=== PATIENT | male | born 1965 | race Caucasian/White ===

== ENCOUNTER 2022-01-23 08:58 | Outpatient (CLI) | payer BC, SELFPAY ==
--- NOTE | 2022-01-23 09:15 | CRLHL7_ITS ---
For Patients: As a result of the Century Cures Act, medical imaging exams and procedure reports are released immediately into your electronic medical record. You may view this report before your referring provider. If you have questions, please contact your health care provider. HISTORY: Evaluate for rotator cuff tear TECHNIQUE: Axial, sagittal oblique and coronal oblique T1, proton density, proton density fat-sat and T2 weighted images were obtained of the left shoulder without contrast administration. COMPARISON: None FINDINGS: Rotator cuff: High-grade partial thickness articular surface tear of the supraspinatus at the insertion measuring approximately 7 mm in AP dimension (series 7, image 8, series 5, images 11 and 12) with a background of moderate supraspinatus tendinosis. Moderate subscapularis tendinosis with partial-thickness interstitial tearing. Mild infraspinatus tendinosis. Rotator cuff muscle mass is maintained. - AC joint and coracoacromial arch: AC joint is intact. No significant fluid in the subacromial/subdeltoid bursa. No os acromiale. - Biceps-labral complex: The long head of biceps tendon is intact. There is no subluxation or dislocation of the tendon from the bicipital groove. The labrum is intact. - Glenohumeral joint: No effusion. The articular surfaces are smooth without focal articular cartilage defect. No significant malalignment. Mild inferior capsular edema. - Bones and soft tissues: There is no acute fracture. No abnormality within the suprascapular or spinoglenoid notches nor within the quadrilateral space. IMPRESSION: 1. High-grade partial thickness articular surface tear of the supraspinatus at the insertion measuring 7 mm in AP dimension with a background of tendinosis. 2. Partial-thickness interstitial tearing of the subscapularis with a background of tendinosis. 3. Mild infraspinatus tendinosis. 4. Edema of the inferior glenohumeral joint capsule which is nonspecific but can be seen with adhesive capsulitis. Dictated by Lenny Mejia MD @ 01/23/2022 3:23:48 PM (Electronically Signed)
== END 2022-01-23 08:59 | disposition home or self-care (01) ==
PROVIDERS: PCP Internal Medicine; Visit Provider Internal Medicine
DX: M25.512 Pain in left shoulder (principal); M75.102 Unspecified rotator cuff tear or rupture of left shoulder, not specified as traumatic; M75.82 Other shoulder lesions, left shoulder; M75.02 Adhesive capsulitis of left shoulder
CPT/HCPCS: 73221

== ENCOUNTER 2022-02-26 14:48 | Outpatient (RCR) | payer BC, SELFPAY | END 2022-04-29 09:46 | disposition home or self-care (01) | PROVIDERS: PCP Internal Medicine; Visit Provider Orthopaedic Surgery Sports Medicine | DX: S46.012A Strain of muscle(s) and tendon(s) of the rotator cuff of left shoulder, initial encounter (principal); Z51.89 Encounter for other specified aftercare | CPT/HCPCS: 97110; 97161 ==

== ENCOUNTER 2022-10-03 16:10 | Outpatient (CLI) | payer BC, SELFPAY | END 2022-10-03 16:11 | disposition home or self-care (01) | LOC: NFLDREF 10-07 12:22 | PROVIDERS: PCP Internal Medicine; Referring Provider Internal Medicine; Visit Provider Internal Medicine | DX: Z12.5 Encounter for screening for malignant neoplasm of prostate (principal); Z13.6 Encounter for screening for cardiovascular disorders; Z13.1 Encounter for screening for diabetes mellitus | CPT/HCPCS: 80053; 80061; 84153 ==

== ENCOUNTER 2023-08-15 07:04 | Outpatient (CLI) | payer BC, SELFPAY ==
--- NOTE | 2023-08-15 08:17 | W.ANESCHARGE ---
Anesthesia Charges Start Date/Time Anesthesia Start Date: 08/15/23 Anesthesia Start Time: 07:55 Stop Date/Time Anesthesia Stop Date: 08/15/23 Anesthesia Stop Time: 08:14
[2023-08-15 08:20] LABS: Albumin* 4.6 g/dL (3.3-5.0); Chloride* 106 mmol/L (96-114)
[2023-08-15 08:21] LABS: Potassium* 4.9 mmol/L (3.6-5.1); Sodium* 140 mmol/L (135-149)
[2023-08-15 08:23] LABS: Alanine Aminotransferase* 38 U/L (4-50); Alkaline Phosphatase* 60 U/L (40-150); Anion Gap 7 mEq/L (7-15); Aspartate Amino Transferase* 43 U/L (12-35); Bilirubin Total* 1.5 mg/dL (0.1-1.5); Blood Urea Nitrogen* 15 mg/dL (7-30); Carbon Dioxide* 27 mmol/L (20-32); Cholesterol* 247 mg/dL (90-199); Creatinine* 0.9 mg/dL (0.5-1.5); Estimated Glomerular Filt Rate 98 ml/min; Glucose* 90 mg/dL (60-115); Total Protein* 7.7 g/dL (6.0-8.3); Triglycerides* 311 mg/dL (40-149)
[2023-08-15 08:24] LABS: HDL Cholesterol* 66 mg/dL (>=40); LDL Cholesterol Calculated 119 mg/dL (<100)
--- NOTE | 2023-08-15 11:11 | W.ANESCHARGE ---
Anesthesia Charges Start Date/Time Anesthesia Start Date: 08/15/23 Anesthesia Start Time: 07:55 Stop Date/Time Anesthesia Stop Date: 08/15/23 Anesthesia Stop Time: 08:14
== END 2023-08-15 07:05 | disposition home or self-care (01) ==
LOC: OP CLINIC 07:04
PROVIDERS: PCP Internal Medicine; Visit Provider Internal Medicine
DX: Z12.11 Encounter for screening for malignant neoplasm of colon (principal); Z12.5 Encounter for screening for malignant neoplasm of prostate; Z13.6 Encounter for screening for cardiovascular disorders; Z13.9 Encounter for screening, unspecified
CPT/HCPCS: 00812; 36415; 45378; 80053; 80061; G0103; J2704

== ENCOUNTER 2023-10-21 08:42 | Outpatient (CLI) | payer BC, SELFPAY ==
--- OUTSIDE RECORDS SUMMARY | 2023-11-08 21:46 | XMS_ITS | Referral Summary ---
Author Organization [place] Address [address] [place] [address] Care Team Providers Care Technical Training Coordinator Name Role Phone Je Batres MD Unavailable [phone] Je Batres MD Primary Care Provider [phone] Encounters Date Type Department Care Team Description 09/19/2023 [facility] Medical Advice [address] [address] Je Batres MD 09/16/2023 3:45 PM CDT Virtual Visit [address] [address] Je Batres MD Prostate cancer (H) (Primary Dx) 08/29/2023 Travel 08/29/2023 1:00 PM CDT Lab [address] [place] [id number] Prostate cancer (H) from Last 3 Months Allergies No known active allergies Medications Medication Sig Dispensed Refills Start Date End Date Status ciprofloxacin (CIPRO) 500 MG tabletIndications:E levated prostate specific antigen (PSA) Take one tablet twice daily starting day prior to procedure. 6 tablet 0 01/14/2014 Active Additional Information Patient not taking.Reported on 07/19/2022 ciprofloxacin (CIPRO) 500 MG tabletIndications:P rophylactic antibiotic Take 1 tablet (500 mg) by mouth 2 times daily Take one pill every 12 hours And begin taking the day before the biopsy 6 tablet 11/20/2021 Active Additional Information Patient not taking.Reported on 11/28/2021 ciprofloxacin (CIPRO) 500 MG tabletIndications:P rophylactic antibiotic Take 1 tab in the AM and 1 tab in the PM the day before your procedure, day of and day after. 6 tablet 01/17/2023 Active escitalopram (LEXAPRO) 10 MG tablet 07/05/2023 Active Active Problems Problem Noted Date Diagnosed Date Elevated prostate specific antigen (PSA) 014 Immunizations Name Administration Dates Next Due COVID-19 Bivalent 12+ (Pfizer) 02/08/2022 Influenza (IIV3) PF 03/12/2017, 4,03/09/2014,2012 Influenza Intranasal Vaccine 03/30/2012,05/23/20 08 Influenza Vaccine (Flucelvax Quadrivalent) 03/12/2018 Influenza Vaccine >6 months,quad, PF ,03/14/2022,03/14/2021,2020 Influenza Vaccine, 6+MO IM (QUADRIVALENT W/PRESERVATIVES) 03/15/2020,03/10/2019 Influenza, seasonal, injectable, PF 02/21/2009 TDAP (Adacel,Boostrix) 04/02/2018,05/23/2008 Zoster recombinant adjuvante d (SHINGRIX) 07/04/2022,02/02/2022 Social History Tobacco Use Types Packs/Day Years Used Date Smoking Tobacco: Former Smokeless Tobacco: Never Tobacco Cessation:Counseling Given: Not Answered Alcohol Use Standard Drinks/Week Comments Yes 0 (1 standard drink = 0.6 oz pur e alcohol) PHQ-2 Answer Date Recorded PHQ-2 Score 0 07/19/2022 Adolescent Education Answer Date Record ed Getting School Help Needed Not on file 02/21 Sex and Gender Information Value Date Recorded Sex Assigned at Not on file Gender Identity Not on file Sexual Orientation Not on file Last Filed Vital Signs Vital Sign Reading Time Taken Comments Blood Pressure 125/77 01/24/2023 4:19 PM CDT Pulse 59 01/24/2023 4:19 PM CDT Temperature - - Respiratory Rate - - Oxygen Saturation 95% 01/24/2023 4:19 PM CDT Inhaled Oxygen Concentration - - Weight 74.8 kg (165 lb) 09/16/2023 3:21 PM CDT Height 170.2 cm (5' 7) 09/16/2023 3:21 PM CDT Body Mass Index 25.84 09/16/2023 3:21 PM CDT Plan of Treatment Not on file Procedures Procedure Name Priority Date/Time Associated Diagnosis Comments PSA TUMOR MARKER Routine 08/29/2023 12:3 2 PM CDT Prostate cancer (H) from Last 3 Months Results * (ABNORMAL) PSA, tumor marker (08/29/2023 12:32 PM CDT) PSA Tumor Marker 13.42(H) 0.00 - 4.50 ng/mL 08/29/2023 1:28 PM CDT [facility] - [facility]ORE LAB Blood STRUCTURE OF LEFT UPPER LIMB / Unknown Venipuncture / Unknown 08/29/2023 12:32 PM CDT 08/29/2023 12:32 PM CDT Narrative [facility] - CORE LAB - 08/29/2023 1:28 PM CDT This result is obtained using the Tiffanie Elecsys total PSA method on the yenny e411 immunoassay analyzer. Results obtained with different assay methods or kits cannot be used interchangeably. Je Batres MD LAB - BLOOD ORDERA BLES [facility] - CORE LAB [facility] - [address] 1st [place] [address] from Last 3 Months Care Teams Technical Training Coordinator Relationship Specialty Start Date End Date Je Batres MD [address] [address] PCP - General Urology 08/06/23 Je Batres MD [address] [place] [address] Assigned Surgical Provider 10/21/21
--- OUTSIDE RECORDS SUMMARY | 2023-11-08 21:46 | XMS_ITS | Encounter Summary ---
Author Organization [place] Address [address] [place] [address] Care Team Providers Care High School Football Coach Name Role Phone Ivy Gatica RN Unavailable [phone] Je Batres MD Unavailable [phone] Je Batres MD Primary Care Provider + [phone] Encounter Details Date Type Department Care Team (Late st Contact Info) Description 07/19/2022 [facility] [place] [facility] [place] [id number] [facility] [address] [place] [address] Je Batres MD [address] [place], [place] [address] Social History Tobacco Use Types Packs/Day Years Used Date Smoking Tobacco: Former Smokeless Tobacco: Never Alcohol Use Standard Drinks/Week Comments Yes 0 (1 standard drink = 0.6 oz pur e alcohol) PHQ-2 Answer Date Recorded PHQ-2 Score 0 07/19/2022 Sex and Gender Information Value Date Recorded Sex Assigned at Not on file Gender Identity Not on file Sexual Orientation Not on file COVID-19 Exposure Response Date Recorded In the last 10 days, have yo u been in contact with someone who was confirmed or suspected to have Coronavirus/COVID-19? No / Unsure 07/19/2022 12:27 PM UTILITY BILL COLLECTOR documented as of this encounter Plan of Treatment Not on file documented as of this encounter Visit Diagnoses Not on filedocumented in this encounter Care Teams High School Football Coach Relationship Specialty Start Date End Date Je Batres MD [address] [address] PCP - General Urology 08/06/23 Ivy Gatica, RN Continuity Quality Control Representative Urology 01/04/14 12/17/22 Je Batres MD [address] [place] [address] Assigned Surgical Provider 10/21/21 documented as of this encounter
--- OUTSIDE RECORDS SUMMARY | 2023-11-08 21:46 | XMS_ITS | Encounter Summary ---
Author Organization [place] Address [address] [place] [address] Care Team Providers Care Sewer Builder Name Role Phone Ivy Gatica RN Unavailable [phone] Je Batres MD Unavailable Je Batres MD Primary Care Provider [phone] Encounter Details Date Type Department Care Team (Late st Contact Info) Description 11/23/2021 External Order Results [facility] [address] [place] [address] Outside, Provider Prostate cancer (H) Social History Tobacco Use Types Packs/Day Years Used Date Smoking Tobacco: Former Smokeless Tobacco: Never Alcohol Use Standard Drinks/Week Comments Yes 0 (1 standard drink = 0.6 oz pur e alcohol) PHQ-2 Answer Date Recorded PHQ-2 Score 0 11/23/2021 Sex and Gender Information Value Date Recorded Sex Assigned at Not on file Gender Identity Not on file Sexual Orientation Not on file COVID-19 Exposure Response Date Recorded In the last 10 days, have yo u been in contact with someone who was confirmed or suspected to have Coronavirus/COVID-19? No / Unsure 11/23/2021 12:02 PM CDT documented as of this encounter Plan of Treatment Not on file documented as of this encounter Procedures Procedure Name Priority Date/Time Associated Diagnosis Comments [employer] PROSTATE CANCER CANCER GENETIC COUNSELOR Routine 11/23/2021 Prostate cancer (H) documented in this encounter Results * Decipher Prostate Cancer Owner Professional Engineer (11/23/2021) See Scanned Report [employer] Fixed Tissue 11/23/2021 Je VALENCIA [email or web address] [address] [facility] [address] [place] [address], [facility] documented in this encounter Visit Diagnoses Diagnosis Prostate cancer (H) Malignant neoplasm of prostate documented in this encounter Care Teams Sewer Builder Relationship Specialty Start Date End Date Je Batres MD [address] [address] PCP - General Urology 08/06/23 Ivy Gatica, RN Continuity King Maker Urology 01/04/14 12/17/22 Je Batres MD [address] [place] [address] Assigned Surgical Provider 10/21/21 documented as of this encounter
--- OUTSIDE RECORDS SUMMARY | 2023-11-08 21:46 | XMS_ITS | Encounter Summary ---
Author Organization [place] Address [address] [place] [address] Care Team Providers Care Buying Intern Name Role Phone Ivy Gatica RN Unavailable [phone] Je Batres MD Unavailable [phone] Je Batres MD Primary Care Provider + [phone] Encounter Details Date Type Department Care Team (Late st Contact Info) Description 03/05/2022 [facility] [place] [facility] [place] [address] [facility] [address] [place] [address] Delmi Phipps Social History Tobacco Use Types Packs/Day Years Used Date Smoking Tobacco: Former Smokeless Tobacco: Never Alcohol Use Standard Drinks/Week Comments Yes 0 (1 standard drink = 0.6 oz pur e alcohol) PHQ-2 Answer Date Recorded PHQ-2 Score 0 11/23/2021 Sex and Gender Information Value Date Recorded Sex Assigned at Not on file Gender Identity Not on file Sexual Orientation Not on file documented as of this encounter Plan of Treatment Not on file documented as of this encounter Visit Diagnoses Not on filedocumented in this encounter Care Teams Buying Intern Relationship Specialty Start Date End Date Je Batres MD [address] [address] PCP - General Urology 08/06/23 Ivy Gatica RN Continuity Supervisor Printing And Stamping Urology 01/04/14 12/17/22 Je Batres MD [address] [place] [address] Assigned Surgical Provider 10/21/21 documented as of this encounter
--- OUTSIDE RECORDS SUMMARY | 2023-11-08 21:46 | XMS_ITS | Encounter Summary ---
Author Organization [place] Address [address] [place] [address] Care Team Providers Care Local Truck Driver Name Role Phone Je Batres MD Unavailable [phone] Je Batres MD Primary Care Provider [phone] Encounter Details Date Type Department Care Team (Late st Contact Info) Description 09/19/2023 [facility] [place] [address] [place] [address] Je Batres MD [address] [place], [place] [address] Social History Tobacco Use Types Packs/Day Years [...] on filedocumented in this encounter Care Teams Local Truck Driver Relationship Specialty Start Date End Date Je Batres MD [address] [address] PCP - General Urology 08/06/23 Je Batres MD [address] [place] [address] Assigned Surgical Provider 10/21/21 documented as of this encounter
--- OUTSIDE RECORDS SUMMARY | 2023-11-08 21:46 | XMS_ITS | Clinical Summary ---
Author Organization [place] Address [address] [place] [address] Care Team Providers Care Manager Meat Name Role Phone Je Batres MD Unavailable [phone] Je Batres MD Primary Care Provider [phone] Allergies No known active allergies Medications Medication [...] Date Elevated prostate specific antigen (PSA) 014 Encounters Date Type Department Care Team Description 09/19/2023 My[facility] Medical Advice [address] [place] [address] Je Batres MD 09/16/2023 3:45 PM CDT Virtual Visit [facility] [address] [facility] [address] [place] [address] Je Batres MD Prostate cancer (H) (Primary Dx) 08/29/2023 1:00 PM CDT Lab [facility] [address] [facility] [address] 1st [place] [address] Prostate cancer (H) 08/29/2023 Travel from Last 3 Months Immunizations Name Administration Dates Next Due COVID-19 Bivalent 12+ (Pfizer) 02/08/2022 Influenza (IIV3) PF 03/12/2017, 4,03/09/2014,2012 Influenza Intranasal Vaccine 03/30/2012,05/23/20 08 Influenza Vaccine (Flucelvax Quadrivalent) 03/12/2018 Influenza Vaccine >6 months,quad, PF ,03/14/2022,03/14/2021,2020 Influenza Vaccine, 6+MO IM (QUADRIVALENT W/PRESERVATIVES) 03/15/2020,03/10/2019 Influenza, seasonal, injectable, PF 02/21/2009 TDAP (Adacel,Boostrix) 04/02/2018,05/23/2008 Zoster recombinant adjuvante d (SHINGRIX) 07/04/2022,02/02/2022 Family History Medical History Relation Comments Other - See Comments Father Enlarged pr ostate Breast Cancer Other 1 cousin Myocardial Infarction Other 2 grandfathe r Cerebrovascular Disease Other 3 grandfat her Relation Status Comments Father Alive Mother Alive Other 1 Other 2 Other 3 Social History Tobacco Use Types Packs/Day Years [...] 09/16/2023 3:21 PM CDT Plan of Treatment Health Maintenance Due Date Last Done Comments ADVANCE CARE PLANNING 1963 ANNUAL REVIEW OF HM ORDERS 1963 CT COLONOGRAPHY 1963 FIT 1963 FLEX SIG 1963 GLUCOSE 1963 YEARLY PREVENTIVE VISIT 1963 sDNA (Cologuard) 1963 COLONOSCOPY 1973 COLORECTAL CANCER SCREENING 1973 HIV SCREENING 1978 HEPATITIS C SCREENING 1981 LIPID 2003 LUNG CANCER SCREENING 2013 PHQ-2 (once per calendar year) 2023 07/19/2022, 11/23/2021, 11/19/2021, Additional history exists RSV VACCINE ( & 60+) (1 - 1-dose 60+ series) 2023 DTAP/TDAP/TD IMMUNIZATION (3 - Td or Tdap) 04/02/2028 04/02/2018, 05/23/2008 ZOSTER IMMUNIZATION Completed 07/04/2022, COVID-19 Vaccine Completed 02/28/2023, 01/2022, 04/05/2021, Additional history exists INFLUENZA VACCINE Completed 02/28/2023, , 03/14/2021, Additional history exists HPV IMMUNIZATION Aged Out No longer e ligible based on patient's age to complete this topic IPV IMMUNIZATION Aged Out No longer e ligible based on patient's age to complete this topic MENINGITIS IMMUNIZATION Aged Out No l onger eligible based on patient's age to complete this topic Pneumococcal Vaccine: Pediatrics (0 to 5 Years) and At-Risk Patients (6 to 64 Years) Aged Out No longer eligible based on patient's age to complete this topic RSV MONOCLONAL ANTIBODY Aged Out No l onger eligible based on patient's age to complete this topic Procedures Procedure Name Priority Date/Time Associated Diagnosis Comments PSA TUMOR MARKER Routine 08/29/2023 12:3 2 PM CDT Prostate cancer (H) from Last 3 Months Results * (ABNORMAL) PSA, tumor marker (08/29/2023 12:32 PM CDT) PSA Tumor Marker 13.42(H) 0.00 - 4.50 ng/mL 08/29/2023 1:28 PM CDT [facility] Blood STRUCTURE OF LEFT UPPER LIMB / Unknown Venipuncture / Unknown 08/29/2023 12:32 PM CDT 08/29/2023 12:32 PM CDT Narrative [facility] - 08/29/2023 1:28 PM CDT This result is obtained using the Tiffanie Elecsys total PSA method on the yenny e411 immunoassay analyzer. Results obtained with different assay methods or kits cannot be used interchangeably. Je Batres MD LAB - BLOOD ORDERA BLES [facility] LAB [facility] - [address] 1st [place] [address] from Last 3 Months Care Teams Manager Meat Relationship Specialty Start Date End Date Je Batres MD [address] [facility] [address] [place] [address] PCP - General Urology 08/06/23 Je Batres MD [address] [place] [address] Assigned Surgical Provider 10/21/21
--- OUTSIDE RECORDS SUMMARY | 2023-11-08 21:46 | XMS_ITS | Encounter Summary ---
Author Organization [place] Address [address] [place] [address]. [place] [address] Care Team Providers Care Hemp Fiber Taker Off Name Role Phone Ivy Gatica RN Unavailable [phone] Je Batres MD Unavailable [phone] Je Batres MD Primary Care Provider [phone] Reason for Visit * Reason Onset Date Comments Results 01/07/2022 Genomic testing results requested Encounter Details Date Type Department Care Team ([facility] st Contact Info) Description 01/07/2022 [facility] [place] [address] [facility] [address] [place] [address] Je Batres MD [address] [place], [place] [address] Results (Genomic testing results requested) Social History Tobacco Use Types Packs/Day Years [...] on file documented as of this encounter Miscellaneous Notes * Telephone Encounter - Genoveva Persaud - 01/07/2022 11:04 AM CDT [facility] Call Center Phone Message May a detailed message be left on voicemail: yes Reason for Call: Requesting Results Name/type of test: Genomic Testing of Biopsy Results per patient Date of test: 11/23/21 Was test done at a location other than [facility] (Please fill in the location if not [facility])?: No Action Taken: Other: Urology Travel Screening: Not Applicable documented in this encounter Plan of Treatment Not on file documented as of this encounter Visit Diagnoses Not on filedocumented in this encounter Care Teams Hemp Fiber Taker Off Relationship Specialty Start Date End Date Je Batres MD [address] [address] PCP - General Urology 08/06/23 Ivy Gatica, RN Continuity Book Editor Urology 01/04/14 12/17/22 Je Batres MD [address] [place] [address] Assigned Surgical Provider 10/21/21 documented as of this encounter
--- OUTSIDE RECORDS SUMMARY | 2023-11-08 21:46 | XMS_ITS | Encounter Summary ---
Author Organization [place] Address [address] [place] [address]. [place] [address] Care Team Providers Care Embedded Systems Designer Name Role Phone Ivy Gatica RN Unavailable [phone] Je Batres MD Unavailable [phone] Je Batres MD Primary Care Provider [phone] Reason for Visit * Reason Onset Date Comments Appointment 09/20/2022 Prostate biopsy this summer Encounter Details Date Type Department Care Team (Late st Contact Info) Description 09/20/2022 Telephone [facility] [place] [address] [facility] [address] [place] [address] Je Batres MD [address] [place] [address] Appointment (Prostate biopsy this summer) Social History Tobacco Use Types Packs/Day Years [...] suspected to have Coronavirus/COVID-19? No / Unsure 09/09/2022 3:05 PM CDT documented as of this encounter Miscellaneous Notes * Telephone Encounter - Andre Snowden - 09/20/2022 2:21 PM CDT [facility] Call Center Phone Message May a detailed message be left on voicemail: yes Reason for Call: Appointment Intake Referring Provider Name: Dr. Batres Diagnosis and/or Symptoms: prostate biopsy Action Taken: Other: ua uro Travel Screening: Not Applicable documented in this encounter Plan of Treatment Not on file documented as of this encounter Visit Diagnoses Not on filedocumented in this encounter Care Teams Embedded Systems Designer Relationship Specialty Start Date End Date Je Batres MD [address] [place] [address] PCP - General Urology 08/06/23 Ivy Gatica, RN Continuity Health And Physical Education Professor Urology 01/04/14 12/17/22 Je Batres MD [address] [place] [address] Assigned Surgical Provider 10/21/21 documented as of this encounter
--- OUTSIDE RECORDS SUMMARY | 2023-11-08 21:46 | XMS_ITS | Encounter Summary ---
Author Organization [place] Address [address] [place] [address] Care Team Providers Care Spine Nurse Name Role Phone Ivy Gatica RN Unavailable [phone] Je Batres MD Unavailable [phone] Je Batres MD Primary Care Provider + [phone] Encounter Details Date Type Department Care Team (Late st Contact Info) Description 11/20/2021 [facility] [place] [address] [facility] [address] [place] [address] [facility] Social History Tobacco Use Types Packs/Day Years [...] on filedocumented in this encounter Care Teams Spine Nurse Relationship Specialty Start Date End Date Je Batres MD [address] [facility] [address] [place] [address] PCP - General Urology 08/06/23 Ivy Gatica, RN Continuity Campus Receptionist Urology 01/04/14 12/17/22 Je Batres MD [address] [place] [address] Assigned Surgical Provider 10/21/21 documented as of this encounter
--- OUTSIDE RECORDS SUMMARY | 2023-11-08 21:46 | XMS_ITS | Encounter Summary ---
Author Organization [facility] Address [address] [place] [address] Care Team Providers Care Teacher Selection Specialist Name Role Phone Je Batres MD Unavailable [phone] Je Batres MD Primary Care Provider [phone] Encounter Details Date Type Department Care Team (Late st Contact Info) Description 08/29/2023 1:00 PM CDT [address] [place] [address] Prostate cancer (H) Social History Tobacco Use [...] 12:3 2 PM CDT Prostate cancer (H) documented in this encounter Results * (ABNORMAL) PSA, tumor marker (08/29/2023 12:32 PM CDT) PSA Tumor Marker 13.42(H) 0.00 - 4.50 ng/mL 08/29/2023 1:28 PM CDT [facility] Blood STRUCTURE OF LEFT UPPER LIMB / Unknown Venipuncture / Unknown 08/29/2023 12:32 PM CDT 08/29/2023 12:32 PM CDT Narrative [facility] - 08/29/2023 1:28 PM CDT This result is obtained using the [employer] total PSA method on the yenny [id number] immunoassay analyzer. Results obtained with different assay methods or kits cannot be used interchangeably. Je Batres MD LAB - BLOOD ORDERA BLES [facility] - [address] [facility] [place] [address] documented in this encounter Visit Diagnoses Diagnosis Prostate cancer (H) Malignant neoplasm of prostate documented in this encounter Care Teams Teacher Selection Specialist Relationship Specialty Start Date End Date Je Batres MD [address] [place] [place] [address] [id number] PCP - General Urology 08/06/23 Je Batres MD [address] [place] [address] [id number] Assigned Surgical Provider 10/21/21 documented as of this encounter
--- OUTSIDE RECORDS SUMMARY | 2023-11-08 21:46 | XMS_ITS | Encounter Summary ---
Author Organization [facility] Address [address] [place] [address] Care Team Providers Care Skinner Pelts Name Role Phone Je Batres MD Unavailable [phone] Je Batres MD Primary Care Provider [phone] Reason for Visit * Reason Comments RECHECK Encounter Details Date Type Department Care Team (Late st Contact Info) Description 09/16/2023 3:45 PM CDT Virtual Visit [address] [place] [address] Je Batres MD [address] [place] [address] Prostate cancer (H) (Primary Dx) Social History Tobacco Use Types Packs/Day Years [...] on file documented as of this encounter Last Filed Vital Signs Vital Sign Reading Time Taken Comments Blood Pressure - - Pulse - - Temperature - - Respiratory Rate - - Oxygen Saturation - - Inhaled Oxygen Concentration - - Weight 74.8 kg (165 lb) 09/16/2023 3:21 PM CDT Height 170.2 cm (5' 7) 09/16/2023 3:21 PM CDT Body Mass Index 25.84 09/16/2023 3:21 PM CDT documented in this encounter Patient Instructions * Patient Instructions* Je Batres MD - 09/16/2023 3:45 PM CDT Follow-up with a local urologist at [place] to continue with active surveillance protocol for prostate cancer Do not anticipate getting any repeat imaging done as PSA is around his baseline documented in this encounter Progress Notes * Je Batres MD - 09/16/2023 3:45 PM CDT Virtual Visit Details Type of service: Video Visit Video start time 3:50 PM Video end time: 4:02 PM Originating Location (pt. Location): Home Distant Location (provider location): On-site Platform used for Video Visit: [facility] HPI: Milton Calderon is a 58 year old male being seen for low-grade low risk prostate cancer. Duration of problem: Few years on active surveillance Previous treatments: Reviewed previous notes Milton is retiring at the end of the spring and moving to [facility] He is looking for urological providers in that location Does not endorse any significant lower urinary tract symptoms PSA slightly elevated from last time but within the range of his prior elevations Review of Systems: From intake questionnaire Skin: negative Eyes: negative Ears/Nose/Throat: negative Respiratory: No shortness of breath, dyspnea on exertion, cough, or hemoptysis Cardiovascular: No chest pain or palpitations Gastrointestinal: negative; no nausea/vomiting, constipation or diarrhea Genitourinary: as per HPI Musculoskeletal: negative Neurologic: negative Psychiatric: negative Hematologic/Lymphatic/Immunologic: negative Endocrine: negative Physical Exam: This is a virtual visit Alert, no acute distress, oriented, conversant Ears/nose/mouth: mouth:normal, good dentition Respiratory: no respiratory distress, or pursed lip breathing Cardiovascular:no obvious jugular venous distension present Skin: no suspicious lesions or rashes on Visible body parts on the Screen Neuro: Alert, oriented, speech and mentation normal Psych: affect and mood normal, alert and oriented to person, place and time Review of Imaging: The following imaging exams were independently viewed and interpreted by me and discussed with patient: Review of Labs: The following labs were reviewed by me and discussed with the patient: PSA: Abnormal: Latest Reference Range & Units 10/26/21 12:53 07/19/22 12:43 PSA 0.00 - 4.00 ug/L 13.80 (H) 15.80 (H) (H): Data is abnormally high Latest Reference Range & Units 09/09/22 15:16 08/29/23 12:32 PSA Tumor Marker 0.00 - 4.50 ng/mL 10.38 (H) 13.42 (H) (H): Data is abnormally high Assessment & Plan Prostate cancer (H) [place] 6 prostate cancer with negative confirmation biopsy Based on available literature this is reassuring for possible nonprogression and based on his PSA seems to be stable as well I did explain to him that he continues to be on surveillance up until the age of 73 He needs to have a urological provider with PSA monitoring and possible biopsies and MRIs as needed He expressed understanding I will send him's recommendations for providers in [place] to the best of my ability I wish him all the best Je Batres MD [facility] Additional Billing and Coding Information: Review of external notes as documented above Review of the result(s) of each unique test - PSA Independent interpretation of a test performed by another physician/other qualified health healthcare network pricing consultant (not separately reported) -N/A Discussion of management or test interpretation with external physician/other qualified healthcare professional/appropriate source - N/A 20 minutes spent by me on the date of the encounter doing chart review, review of test results, interpretation of tests, patient visit and documentation documented in this encounter Nursing Notes * NadiameenuKatrin - 09/16/2023 3:45 PM CDT Is the patient currently in the state of [place]? YES Visit mode:VIDEO If the visit is dropped, the patient can be reconnected by: VIDEO VISIT: Text to cell phone: Telephone Information: Will anyone else be joining the visit? NO (If patient encounters technical issues they should call [phone] :[phone]) How would you like to obtain your AVS? MyChart Are changes needed to the allergy or medication list? No Are refills needed on medications prescribed by this physician? NO Reason for visit: CHERYL Ruiz VVF documented in this encounter Plan of Treatment Not on file documented as of this encounter Visit Diagnoses Diagnosis Prostate cancer (H)- Primary Malignant neoplasm of prostate documented in this encounter Care Teams Skinner Pelts Relationship Specialty Start Date End Date Je Batres MD [address] [place] [id number] PCP - General Urology 08/06/23 Je Batres MD [address] [place] [id number] Assigned Surgical Provider 10/21/21 documented as of this encounter
--- OUTSIDE RECORDS SUMMARY | 2023-11-08 21:46 | XMS_ITS | Encounter Summary ---
Author Organization [facility] Address [address] [place] [address] Care Team Providers Care Procurement Services Manager Name Role Phone Je Batres MD Unavailable [phone] Je Batres MD Primary Care Provider [phone] Encounter Details Date Type Department Care Team (Latest Contact Info) Description 08/29/2023 Travel Social History Tobacco Use Types Packs/Day Years [...] on filedocumented in this encounter Care Teams Procurement Services Manager Relationship Specialty Start Date End Date Je Batres MD [address] [address] PCP - General Urology 08/06/23 Je Batres MD [address] [place] [id number] Assigned Surgical Provider 10/21/21 documented as of this encounter
--- OUTSIDE RECORDS SUMMARY | 2023-11-08 21:46 | XMS_ITS | Clinical Summary ---
Author Organization [facility] Address [place], [place] [address] Care Team Providers Care Railway Signalling Engineer Name Role Phone Juan Ojeda MD Primary Care Provider Allergies No known active allergies Medications No known medications Active Problems Problem Noted Date Diagnosed Date Elevated PSA 2015 Immunizations Name Administration Dates Next Due Influenza, IIV3 (Age >=3 years) 04/16/2014 Tdap 05/23/2008 Family History Medical History Relation Name Comments Good Health Brother Good Health Daughter Good Health Father Good Health Mother Good Health Sister Relation Name Status Comments Brother Daughter Father Mother Sister Social History Tobacco Use Types Packs/Day Years Used Date Smoking Tobacco: Former Smokeless Tobacco: Never Alcohol Use Standard Drinks/Week Comments Yes 0 (1 standard drink = 0.6 oz pur e alcohol) Sex and Gender Information Value Date Recorded Sex Assigned at Not on file Gender Identity Not on file Sexual Orientation Not on file Obstetrics History Last Filed Vital Signs Vital Sign Reading Time Taken Comments Blood Pressure 126/86 2015 10:26 [facility] Pulse 65 2015 10:26 AM [facility] Temperature 36.7 ??C (98 ??F) 2015 10: 26 AM [facility] Respiratory Rate - - Oxygen Saturation 99% 2015 10: 26 AM [facility] Inhaled Oxygen Concentration - - Weight 71.2 kg (156 lb 14.4 oz) 016 10:26 AM [facility] Height 170.2 cm (5' 7) 2015 10:2 6 AM [facility] Body Mass Index 24.57 2015 10:26 AM [facility] Plan of Treatment Health Maintenance Due Date Last Done Comments Depression screening for age 12+ 1975 HIV for age 15-65 1978 Hepatitis C screening for ag e 18-79 1981 Colonoscopy through age 75 2008 Lipids for age 45-75 2008 Zoster (shingles) series for age 50+ (1 of 2) 2013 BMI (ht and wt on same day) for age 18+ 2016 2015 Tetanus booster 05/23/2018 05/23/2008 COVID-19 vaccine series ( - 2022- season) 2023 Influenza for age 50-64 02/01/2024 04/16/2014 Tdap Completed 05/23/2008 Pneumococcal series for age 6-64 Aged Out No longer eligible based on patient's age to complete this topic Care Teams Railway Signalling Engineer Relationship Specialty Start Date End Date Juan Ojeda MD [address] [place] [address] PCP - General 07/26/15
--- OUTSIDE RECORDS SUMMARY | 2023-11-08 21:46 | XMS_ITS | Encounter Summary ---
Author Organization [facility] Address [address] [place] [address] Care Team Providers Care Rail Equipment Operator Name Role Phone Ivy Gatica RN Unavailable [phone] Je Batres MD Unavailable [phone] Je Batres MD Primary Care Provider + [phone] Encounter Details Date Type Department Care Team (Late st Contact Info) Description 12/16/2022 [facility] [place] [address] [facility] [address] [place] [address] [facility] Social History Tobacco Use Types Packs/Day Years [...] on filedocumented in this encounter Care Teams Rail Equipment Operator Relationship Specialty Start Date End Date Je Batres MD [address] [address] PCP - General Urology 08/06/23 Ivy Gatica RN Continuity Audiology Director Urology 01/04/14 12/17/22 Je Batres MD [address] [place] [id number] Assigned Surgical Provider 10/21/21 documented as of this encounter
== END 2023-10-21 08:43 | disposition home or self-care (01) ==
LOC: NFLDREF 11-08 21:44
PROVIDERS: PCP Internal Medicine; Referring Provider Internal Medicine; Visit Provider Internal Medicine
DX: Z00.00 Encounter for general adult medical examination without abnormal findings (principal); Z12.5 Encounter for screening for malignant neoplasm of prostate; Z13.6 Encounter for screening for cardiovascular disorders; Z13.9 Encounter for screening, unspecified
CPT/HCPCS: 80053; 80061; G0103